=== PATIENT | male | born 1975 | race Two or more races ===

== ENCOUNTER 2024-09-09 13:28 | Emergency (ER) | payer OTHER ==
[~2024-09-09] VITALS: Ht 175.3 cm; Wt 94.3 kg
[2024-09-09] MEDS ORDERED: HUMULIN 70100 UNIT/2 (13:47)
[2024-09-09] MEDS ORDERED: NORVASC2.5 M1 (13:47)
[2024-09-09] MEDS ORDERED: BUSPIRONE HCL7.5 MG (13:48)
[2024-09-09] MEDS ORDERED: 0.9 % SODIUM CHLORIDE 1,000 ML IV SCH (14:00)
[2024-09-09] MEDS ORDERED: PROMETHAZINE HCL 50 MG/ML AMPUL IM ONE (14:00)
[2024-09-09] MEDS ORDERED: INSULIN REGULAR, HUMAN 1,000 UNIT/10 ML UNITS IV ONE (14:00)
[2024-09-09] MEDS ORDERED: LORazepam 2 MG/ML VIAL IV ONE (15:45)
[2024-09-09] MEDS ORDERED: LORazepam 2 MG/ML VIAL ONE (15:51)
[2024-09-09] MEDS ORDERED: FAMOTIDINE/PF 20 MG/2 ML VIAL ONE (17:02)
[2024-09-09] MEDS ORDERED: MORPHINE SULFATE 4 MG/ML VIAL IV ONE ×2 (17:45→22:30)
[2024-09-09 17:47] LABS: ALBUMIN 4.3 gm/dL (3.4-5.0); CALCIUM 9.3 mg/dL (8.5-10.1); CREATININE SERUM 3.66 mg/dL (0.70-1.30); GFR 17.92; GLOBULINA 4.5 G/DL (2.4-3.5); POTASSIUM 4.98 mEq/L (3.5-5.1); TOTAL PROTEIN 8.8 gm/dL (6.4-8.2)
[2024-09-09 18:04] LABS: BILIRUBIN TOTAL 1.66 mg/dL (0.3-1.2); BILIRUBIN,CONJUGATED 0.32 mg/dL (0.0-0.2); BILIRUBIN,UNCONJUGATED 1.34 mg/dL (0.0-0.6)
[2024-09-09 22:31] LABS: BASO % 0.2 % (0.1-1.2); HEMATOCRIT 43.4 % (40.1-51.0); HEMOGLOBIN 15.3 g/dL (13.7-17.5); LYMPH # 0.75 (1.18-3.74); LYMPH % 6.3 % (19.3-53.1); MEAN CORPUSCULAR HEMOGLOBIN 29.5 pg (25.6-32.2); MONO # 0.27 (0.24-0.82); MONO % 2.3 % (4.7-12.5); NEUT # 10.91 (1.56-6.13); NEUT % 90.8 % (34.0-71.1); PLATELET COUNT 261 K/uL (163-369); RED BLOOD COUNT 5.19 M/uL (4.63-6.08); RED CELL DISTRIBUTION WIDTH 13.3 % (11.6-14.4)
[2024-09-09 22:54] LABS: CALCIUM 8.8 mg/dL (8.5-10.1); CREATININE SERUM 2.39 mg/dL (0.70-1.30); GFR 29.3; POTASSIUM 4.6 mEq/L (3.5-5.1)
[2024-09-09 23:14] LABS: ABG PH 7.362 (7.35-7.45); ABG PO2 80.5 mmHg (80-100); ABG pCO2 36.7 mmHg (35-45); SaO2 95.1 %
[2024-09-09 23:15] LABS: BASE EXCESS -4.4 mmol/l; BICARBONATE 20.3 mmol/l (23-25); Tco2 21.4 mmol/l; allen test SATISFACTORY; mode ROOM AIR; o2 21 %; puncture site RADIAL RIGHT
[2024-09-10] MEDS ORDERED: KETOROLAC TROMETHAMINE 30 MG VIAL IV STA (02:50)
[2024-09-10] MEDS ORDERED: CEFTRIAXONE SODIUM 1,000 MG VIAL IV STA (02:50)
[2024-09-10] MEDS ORDERED: CEFTRIAXONE SODIUM 1,000 MG VIAL ONE (03:03)
[2024-09-10] MEDS ORDERED: KETOROLAC TROMETHAMINE 30 MG VIAL ONE (03:03)
[2024-09-10 06:23] LABS: ALBUMIN 3.7 gm/dL (3.4-5.0); BILIRUBIN TOTAL 0.84 mg/dL (0.3-1.2); CALCIUM 8.1 mg/dL (8.5-10.1); CREATININE SERUM 1.56 mg/dL (0.70-1.30); GFR 47.94; GLOBULINA 4.4 G/DL (2.4-3.5); POTASSIUM 4.61 mEq/L (3.5-5.1); TOTAL PROTEIN 8.1 gm/dL (6.4-8.2)
[2024-09-10] MEDS ORDERED: PEPCID40 MG PO (07:27)
[2024-09-10] MEDS ORDERED: ZOFRAN8 MG PO (07:27)
== END 2024-09-10 08:45 | disposition home or self-care (01) ==
LOC: ER 13:28
PROVIDERS: Emergency Medicine; General Practice
DX: E86.0 Dehydration (principal); E11.9 Type 2 diabetes mellitus without complications; Z79.4 Long term (current) use of insulin; F41.9 Anxiety disorder, unspecified; R11.10 Vomiting, unspecified